=== PATIENT | female | born 1980 | race American Indian/Alaskan Native ===

== ENCOUNTER 2021-11-14 04:20 | Emergency (ER) | payer MEDICAID, OTHER ==
[2021-11-14 04:23] VITALS: BP 139/89
[2021-11-14] MEDS ORDERED: MECLIZINE 25 MG TAB PO ONE (10:15)
[2021-11-14] MEDS ORDERED: SODIUM CHLORIDE 0.9% 1000 ML 1,000 ML IV ONE (10:15)
[2021-11-14] MEDS ORDERED: IBUPROFEN 800 MG TAB PO ONE (10:34)
[2021-11-14 11:06] LABS: Basophils # (Auto) 0.1 K/mm3 (0.0-0.1); Eosinophils # (Auto) 0.1 K/mm3 (0.0-0.4); Eosinophils % (Auto) 1.4 % (0.0-4.3); Hematocrit 37.1 % (30.3-42.9); Lymphocytes # (Auto) 1.8 K/mm3 (1.2-5.4); Mean Corpuscular HGB Conc 32 % (30-34); Mean Corpuscular Volume 94 fl (79-97); Monocytes # (Auto) 0.4 K/mm3 (0.0-0.8); Monocytes % (Auto) 6.7 % (0.0-7.3); Platelet Count 584 K/mm3 (140-440); Red Blood Count 3.96 M/mm3 (3.65-5.03); Red Cell Distribution Width 19.8 % (13.2-15.2)
[2021-11-14 11:14] LABS: INR 0.97 (0.87-1.13)
--- NOTE | 2021-11-14 11:17 | XRay Report ---
CHEST 1 VIEW INDICATION / CLINICAL INFORMATION: Lightheadedness/Dizziness. COMPARISON: None available. FINDINGS: SUPPORT DEVICES: None. HEART / MEDIASTINUM: No significant abnormality. LUNGS / PLEURA: No significant pulmonary or pleural abnormality. No pneumothorax. ADDITIONAL FINDINGS: No significant additional findings. IMPRESSION: 1. No acute findings. Signer Name: Arsalan Marquez MD Signed: 11/14/2021 11:12 AM Workstation Name: [email or web address]
[2021-11-14 11:25] LABS: Alanine Aminotransferase 21 units/L (7-56); Albumin 4.7 g/dL (3.9-5); Blood Urea Nitrogen 3 mg/dL (7-17); Calcium 9.8 mg/dL (8.4-10.2); Hemolysis Index 26
[2021-11-14 12:07] LABS: BUN/Creatinine Ratio 5
[2021-11-14] MEDS ORDERED: cefTRIAXone/NS 1 GM/50 ML 1 GM/50 ML BAG IV ONE (12:27)
--- NOTE | 2021-11-14 12:46 | Emergency Department Report ---
ED Dizziness HPI - General Chief Complaint: Dizziness Stated Complaint: MEDS MAKING HER DIZZY Time Seen by Provider: 11/14/21 10:14 Source: patient, EMS Mode of arrival: Ambulatory Limitations: No Limitations - History of Present Illness Initial Comments: SEROQUEL AND TRILEPTAL ARE MAKING HER DIZZY MD Complaint: dizziness -: Gradual Timing: intermittent Description: lightheadedness History of Same: No Severity: mild Improves With: nothing - Related Data Home Medications Medication Instructions Recorded Confirmed Last Taken Hydrocodone/Ibuprofen [Vicoprofen 1 each PO Q12HR PRN 11/05/13 11/05/13 11/03/13 200-7.5 mg Tab] Ibuprofen [Motrin] 800 mg PO TID PRN 11/05/13 11/05/13 11/05/13 09:00 Levothyroxine [Synthroid] 100 mcg PO QAM 11/05/13 11/05/13 11/05/13 09:00 Previous Rx's Medication Instructions Recorded Last Taken Type Amoxicillin [Trimox CAP] 500 mg PO Q8H #30 capsule 11/06/13 Unknown Rx HYDROcodone/APAP 5-325 [[place] 1 each PO Q6HR PRN #12 tablet 11/06/13 Unknown Rx 5/325 mg] Ibuprofen [Motrin] 800 mg PO Q8HR PRN #30 tablet 05/16/15 Unknown Rx Sulfamethoxazole/Trimethoprim 1 each PO BID #14 tablet 05/16/15 Unknown Rx [Bactrim DS TAB] traMADoL [Ultram] 50 mg PO Q6HR PRN #14 tablet 05/16/15 Unknown Rx Ciprofloxacin HCl 500 mg PO BID #14 11/14/21 Unknown Rx Ketorolac [Toradol] 10 mg PO Q6H PRN #10 11/14/21 Unknown Rx Allergies Allergy/AdvReac Type Severity Reaction Status Date / Time No Known Allergies Allergy Unverified 11/05/13 23:44 ED Review of Systems ROS: Stated complaint: MEDS MAKING HER DIZZY Other details as noted in HPI Constitutional: denies: chills, fever Eyes: denies: eye pain, eye discharge, vision change ENT: denies: ear pain, throat pain Respiratory: denies: cough, shortness of breath, wheezing Cardiovascular: denies: chest pain, palpitations Endocrine: no symptoms reported Gastrointestinal: denies: abdominal pain, nausea, diarrhea Genitourinary: denies: urgency, dysuria, discharge Musculoskeletal: denies: back pain, joint swelling, arthralgia Skin: denies: rash, lesions Neurological: denies: headache, weakness, paresthesias Psychiatric: denies: anxiety, depression Hematological/Lymphatic: denies: easy bleeding, easy bruising ED Past Medical Hx - Past Medical History Previous Medical History?: Yes Hx Psychiatric Treatment: Yes (PSCHIZOAFFECTIVE/BIPOLAR) - Surgical History Past Surgical History?: Yes Additional Surgical History: thyroidectomy, csection - Social History Smoking Status: Never Smoker Substance Use Type: None - Medications Home Medications: Home Medications Medication Instructions Recorded Confirmed Last Taken Type Hydrocodone/Ibuprofen [Vicoprofen 1 each PO Q12HR PRN 11/05/13 11/05/13 11/03/13 History 200-7.5 mg Tab] Ibuprofen [Motrin] 800 mg PO TID PRN 11/05/13 11/05/13 11/05/13 09:00 History Levothyroxine [Synthroid] 100 mcg PO QAM 11/05/13 11/05/13 11/05/13 09:00 History Amoxicillin [Trimox CAP] 500 mg PO Q8H #30 capsule 11/06/13 Unknown Rx HYDROcodone/APAP 5-325 [[place] 1 each PO Q6HR PRN #12 tablet 11/06/13 Unknown Rx 5/325 mg] Ibuprofen [Motrin] 800 mg PO Q8HR PRN #30 tablet 05/16/15 Unknown Rx Sulfamethoxazole/Trimethoprim 1 each PO BID #14 tablet 05/16/15 Unknown Rx [Bactrim DS TAB] traMADoL [Ultram] 50 mg PO Q6HR PRN #14 tablet 05/16/15 Unknown Rx Ciprofloxacin HCl 500 mg PO BID #14 11/14/21 Unknown Rx Ketorolac [Toradol] 10 mg PO Q6H PRN #10 11/14/21 Unknown Rx ED Physical Exam - General Limitations: No Limitations General appearance: alert, in no apparent distress - Head Head exam: Present: atraumatic, normocephalic - Eye Eye exam: Present: normal appearance - ENT ENT exam: Present: mucous membranes moist - Neck Neck exam: Present: normal inspection - Respiratory Respiratory exam: Present: normal lung sounds bilaterally. Absent: respiratory distress - Cardiovascular Cardiovascular Exam: Present: regular rate, normal rhythm. Absent: systolic murmur, diastolic murmur, rubs, gallop - GI/Abdominal GI/Abdominal exam: Present: soft, normal bowel sounds - Extremities Exam Extremities exam: Present: normal inspection - Back Exam Back exam: Present: normal inspection - Neurological Exam Neurological exam: Present: alert, oriented X3 - Psychiatric Psychiatric exam: Present: normal affect, normal mood - Skin Skin exam: Present: warm, dry, intact, normal color. Absent: rash ED Course Vital Signs 11/14/21 11/14/21 11/14/21 04:23 11:55 12:28 Temperature 98 F Pulse Rate 92 H 110 H Respiratory 18 14 18 Rate Blood Pressure 139/89 [Right] O2 Sat by Pulse 99 100 Oximetry ED Medical Decision Making - Lab Data Result diagrams: 11/14/21 10:32 11/14/21 10:32 Critical care attestation.: If time is entered above; I have spent that time in minutes in the direct care of this critically ill patient, excluding procedure time. ED Disposition Clinical Impression: Dizziness, UTI (urinary tract infection) Disposition: 01 HOME / SELF CARE / HOMELESS Is pt being admited?: No Does the pt Need Aspirin: No Condition: Stable Instructions: Urinary Tract Infection, Adult Prescriptions: Ciprofloxacin HCl 500 mg PO BID #14 Ketorolac [Toradol] 10 mg PO Q6H PRN #10 PRN Reason: Pain Referrals: PRIMARY CARE, [Primary Care Provider] - 3-5 Days
[2021-11-14] MEDS ORDERED: MORPHINE 4 MG/1 ML INJ IV ONE (12:57)
[2021-11-14 13:45] LABS: Bilirubin,Urine NEG (Negative); Blood,Urine NEG (Negative); Color,Urine Yellow (Yellow); Mucus,Urine FEW /HPF; Protein,Urine <15 mg/dL mg/dL (Negative); Urobilinogen,Urine < 2.0 mg/dL (<2.0)
[2021-11-14] MEDS ORDERED: KETOROLAC 30 MG/1 ML INJ IV ONE (13:54)
[2021-11-14] MEDS ORDERED: KETOROLAC 30 MG/1 ML INJ ONE (13:55)
[2021-11-14 14:54] LABS: Amphetamine Screen,Urine PRESUMPTIVE NEGATIVE; Benzodiazepines Screen,Urine PRESUMPTIVE NEGATIVE; Cannabinoid Screen,Urine PRESUMPTIVE NEGATIVE; Cocaine Screen,Urine PRESUMPTIVE POSITIVE; Methadone Screen,Urine PRESUMPTIVE NEGATIVE; Opiate Screen,Urine PRESUMPTIVE NEGATIVE
--- NOTE | 2021-11-16 18:58 | Electrocardiograph Report ---
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
== END 2021-11-14 14:14 | disposition home or self-care (01) ==
LOC: ED 04:20
DX: R42 Dizziness and giddiness (principal); N39.0 Urinary tract infection, site not specified; Z79.899 Other long term (current) drug therapy
CPT/HCPCS: 36415; 71045; 80053; 80307; 81001; 82550; 82553; 84443; 84484; 85025; 85610; 93005; 96361; 96365; 96375; 99284; J0696; J1885; J2270; J7030; 80320; Q0162; G0480